=== PATIENT | female | born 1960 | race Caucasian/White ===

== ENCOUNTER 2023-04-01 13:27 | Inpatient (IN) | payer MEDICAID, SELFPAY ==
[2023-04-01 13:34] VITALS: BP 168/74; PULSE 57; RESP 16; TEMP 36.3; O2SAT 100; BMI 24.3
--- NOTE | 2023-04-01 13:44 | CRLHL7_ITS ---
For Patients: As a result of the Century Cures Act, medical imaging exams and procedure reports are released immediately into your electronic medical record. You may view this report before your referring provider. If you have questions, please contact your health care provider. Indication: FALL, PAIN CANT BEAR WT Technique: AP hip centered pelvis and two views right hip Comparison: None Findings: There is a subtle lucency through the femoral neck on the right. The pubic rami are intact. Mild degenerative changes. Impression: Subtle nondisplaced right femoral neck fracture. Dictated by Wilton Jay MD @ 04/01/2023 2:30:09 PM (Electronically Signed)
--- NOTE | 2023-04-01 13:51 | ED_ITS ---
HPI - General Adult General Date Seen: 04/01/23 Chief complaint: Hip Injury/Pain Stated complaint: Fall Time Seen by Provider: 04/01/23 13:30 Source: patient Mode of arrival: wheelchair Limitations: no limitations History of Present Illness HPI narrative: Patient is a 62-year-old woman who presents by car after having fallen and landing on her right hip. She has been unable to weight bear since then. She was walking her pool got tangled up and fell landing on the right hip. She complains of pain in the lateral right hip. Denies other complaints. Medications reviewed, no anticoagulation. Related Data Home Medications Medication Instructions Recorded Confirmed lisinopril 10 mg tablet 10 mg PO DAILY 04/01/23 04/01/23 venlafaxine 150 mg 150 mg PO DAILY 04/01/23 04/01/23 capsule,extended release 24 hr Allergies Allergy/AdvReac Type Severity Reaction Status Date / Time oxycodone Allergy Unknown Verified 04/01/23 13:37 Review of Systems Status of ROS: Reports: 6 or more systems reviewed and unremarkable except as noted in History and below Exam Narrative: Exam Narrative: Vital signs as noted above. In general, an alert, well-appearing patient. Head: Normocephalic, atraumatic. Eyes: Pupils are equal reactive. Extraocular movements are full. Conjunctivae are normal. ENT: Mucous membranes are moist. Throat is normal. Neck: Supple without lymphadenopathy. Heart: Regular rate and rhythm. No murmur or rub. Lungs: Clear bilaterally. No increased work of breathing, crackles or wheezes. Abdomen: Soft and nontender. No organomegaly. Extremities: Well perfused. No edema. No calf tenderness. Pulses are difficult to palpate in bilateral feet. CMS otherwise intact. Pain with range of motion of the right hip. Neurologic: Patient is alert and oriented to person and place. Speech is fluent. Face is symmetric. Moves all extremities equally. Affect: Normal. Skin: Warm and dry. Well perfused. Const: Vital Signs, click to edit/add: Vital Signs - 24 hr 04/01/23 13:34 Temperature 97.4 F L Pulse Rate [Pulse Oximeter] 57 L Respiratory Rate 16 Blood Pressure [Le ft Upper Arm] 168/74 H Pulse Oximetry 100 Oxygen Delivery Me thod Room Air Documenting provider has reviewed patient's vital signs: yes Course Course Hospital Course: X-rays of the right hip by my review show a subtle lucency through the femoral neck on the cross-table lateral. Other views looked normal, but I do think this represents fracture. Final radiology read is the same. Reviewed this with the patient. She is given morphine and Zofran for pain and nausea control. Labs were ordered. EKG is ordered in anticipation of OR tomorrow. Care is discussed with the hospitalist as well as Dr. Enriquez. Plan is for admission for operative care tomorrow. No other complaints at this time. She did have a Clark placed. Vital Signs Vital signs: Initial Vital Signs Temperature 97.4 F L 04/01/23 13:34 Temperature Source Temporal Artery Scan 04/01/23 13:34 Pulse Rate 57 L 04/01/23 13:34 Respiratory Rate 16 04/01/23 13:34 Blood Pressure 168/74 H 04/01/23 13:34 Blood Pressure Mean 105 04/01/23 13:34 Blood Pressure Position Sitting 04/01/23 13:34 Pulse Oximetry 100 04/01/23 13:34 Oxygen Delivery Method Room Air 04/01/23 13:34 Vital Signs Temperature 97.4 F L 04/01/23 13:34 Pulse Rate 57 L 04/01/23 13:34 Respiratory Rate 16 04/01/23 13:34 Blood Pressure 168/74 H 04/01/23 13:34 Pulse Oximetry 100 04/01/23 13:34 Oxygen Delivery Method Room Air 04/01/23 13:34 Temperature 97.4 F L 04/01/23 13:34 Pulse Rate 57 L 04/01/23 13:34 Respiratory Rate 16 04/01/23 13:34 Blood Pressure 168/74 H 04/01/23 13:34 Pulse Oximetry 100 04/01/23 13:34 Oxygen Delivery Method Room Air 04/01/23 13:34 Medical Decision Making Lab Data Labs: Lab Results 04/01/23 Range/Units 14:45 WBC 5.58 (4.50-11.00) K/uL RBC 4.31 (4.00-5.20) m/uL Hgb 13.3 (12.0-16.0) gm/dL Hct 38.0 (33.0-51.0) % MCV 88 (80-100) fL MCH 31 (26-34) pg MCHC 35 (32-36) gm/dL RDW Coeff of [place] 12.0 (11.5-15.5) % Plt Count 211 (140-440) K/uL Neut % (Auto) 66.8 (42.0-72.0) % Lymph % (Auto) 25.6 (20-44) % [place] % (Auto) 6.3 (0.0-11.0) % Eos % (Auto) 0.2 (0.0-7.0) % Baso % (Auto) 0.2 (0.0-3.0) % Neut # (Auto) 3.73 (1.7-7.0) K/uL Lymph # (Auto) 1.43 (0.90-2.90) K/uL [place] # (Auto) 0.40 (0.00-0.90) K/UL Eos # (Auto) 0.01 (0.00-0.50) K/uL Baso # (Auto) 0.01 (0.00-0.30) K/uL Abs Immat Gran (auto) 0.05 (0.00-0.30) K/uL Imm/Tot Granulo (auto) 0.9 % INR 0.96 (0.91-1.10) APTT 28 (23-33) Seconds Discharge Plan Discharge Clinical Impression: Closed fracture of right hip Patient Disposition: Admitted As Observation Condition: Stable
[2023-04-01] MEDS: ONDANSETRON 2 MG/ML inj 4 MG IVP (14:59)
[2023-04-01] MEDS: MORPHINE 4 MG/ML INJ IVP ×5 (15:00→23:12)
[2023-04-01 15:31] LABS: Basophils Absolute Auto 0.01 K/uL (0.00-0.30); Basophils Percent Auto 0.2 % (0.0-3.0); Eosinophils Absolute Auto 0.01 K/uL (0.00-0.50); Eosinophils Percent Auto 0.2 % (0.0-7.0); Hemoglobin* 13.3 gm/dL (12.0-16.0); Immature Granulocytes Abs Auto 0.05 K/uL (0.00-0.30); Immature Granulocytes Pct Auto 0.9 %; Lymphocytes Absolute Auto 1.43 K/uL (0.90-2.90); Lymphocytes Percent Auto 25.6 % (20-44); Mean Corpuscular HGB Conc 35 gm/dL (32-36); Mean Corpuscular Hemoglobin 31 pg (26-34); Mean Corpuscular Volume 88 fL (80-100); Monocytes Percent Auto 6.3 % (0.0-11.0); Neutrophils Absolute Auto 3.73 K/uL (1.7-7.0); Neutrophils Percent Auto 66.8 % (42.0-72.0); Platelet Count* 211 K/uL (140-440); Red Blood Count 4.31 m/uL (4.00-5.20); White Blood Count* 5.58 K/uL (4.50-11.00)
[2023-04-01 15:33] LABS: Slide Review Reflex No
[2023-04-01 15:48] LABS: Albumin* 4.4 g/dL (3.3-5.0)
[2023-04-01 15:49] LABS: Chloride* 103 mmol/L (96-114); Sodium* 137 mmol/L (135-149)
[2023-04-01 15:51] LABS: Alkaline Phosphatase* 54 U/L (40-150); Aspartate Amino Transferase* 26 U/L (12-35); Bilirubin Direct* 0.2 mg/dL (0.0-0.5); Bilirubin Total* 0.5 mg/dL (0.1-1.5); Blood Urea Nitrogen* 16 mg/dL (7-30); Carbon Dioxide* 28 mmol/L (20-32); Creatinine* 0.7 mg/dL (0.5-1.5); Est. Creatinine Clearance* 57.45; Estimated Glomerular Filt Rate 98 ml/min
[2023-04-01 15:52] LABS: Alanine Aminotransferase* 25 U/L (4-35); Calcium* 9.4 mg/dL (8.4-10.6); Glucose* 117 mg/dL (60-115)
[2023-04-01 15:53] LABS: INR 0.96 (0.91-1.10); Partial Thromboplastin Time* 28 Seconds (23-33); Prothrombin Time 13.3 Seconds
--- NOTE | 2023-04-01 16:07 | P.IMHP_ITS ---
Hospitalist- H&P: HPI History of Present Illness Date Seen: 04/01/23 Chief complaint: Fall Narrative: Teresa Shelton is a 62 year old female who presented to the ED after a mechanical fall this afternoon. She was walking her 65 pound poodle and got tangled in the leash, falling onto her R hip. No other preceding symptoms. ER Course and Findings: - R femoral neck fracture on XR - received Morphine for pain control - Orthopedic surgery consulted, plans on intervention tomorrow morning - reassuring baseline labs Past histories updated below. Teresa has a PCP in [place], [place]. She had a recent PCP visit with reassuring labs, per her report. No known history of osteopenia or osteoporosis. She was never on HRT. No history of blood clots, surgical or anesthetic complications during previous surgeries. She is very active and plans to go home as soon as possible postoperatively. Review of Systems Status of ROS: Reports: 10 or more systems reviewed and unremarkable except as noted in History and below [facility] Medical History (Updated 04/01/23 @ 17:23 by Suzy Li MD) Family history of colon cancer ?Z80.0 - Family history of malignant neoplasm of digestive organs (ICD-10) Anxiety ?F41.9 - Anxiety disorder, unspecified (ICD-10) Hyperlipidemia ?E78.5 - Hyperlipidemia, unspecified (ICD-10) GERD (gastroesophageal reflux disease) ?K21.9 - Gastro-esophageal reflux disease without esophagitis (ICD-10) Surgical History (Updated 04/01/23 @ 17:10 by Suzy Li MD) H/O gastric bypass ?Z98.84 - Bariatric surgery status (ICD-10) Hx of laparoscopic gastric banding ?Z98.84 - Bariatric surgery status (ICD-10) History of carpal tunnel release ?Z98.890 - Other specified postprocedural states (ICD-10) H/O: hysterectomy ?Z90.710 - Acquired absence of both cervix and uterus (ICD-10) Hx of cholecystectomy ?Z90.49 - Acquired absence of other specified parts of digestive tract (ICD- 10) Family History (Updated 04/01/23 @ 16:08 by Suzy Li MD) Father Colon cancer Social History (Updated 04/01/23 @ 17:14 by Suzy Li MD) Narrative: Patient lives with Jas Cloud (would be medical decision maker if needed); they live in an park in [place] in the summer and in [place], [place] during the winter. She has 2 adult children, Jas has 4 adult children. Former smoker, quit remotely. Occasional MJ use, rare ETOH use. DNR/DNI (but agrees to Full Code during surgical procedure). Meds Home Medications and Allergies Home Medications Medication Instructions Recorded Confirmed Type lisinopril 10 mg tablet 10 mg PO DAILY 04/01/23 04/01/23 History venlafaxine 150 mg 150 mg PO DAILY 04/01/23 04/01/23 History capsule,extended release 24 hr Home Medication Comments: Also takes a Calcium supplement and MVI daily. Allergies Allergy/AdvReac Type Severity Reaction Status Date / Time oxycodone Allergy Unknown Verified 04/01/23 13:37 Exam Narrative: Exam Narrative: GEN: Alert and oriented, nontoxic HEENT: EOMIs bilaterally, no scleral icterus CV: RRR, No concerning murmurs, rubs, or gallops R: LCTA bilaterally without concerning wheezing, air movement adequate Ext: wwp, no concerning edema Skin: No concerning skin lesions or rashes on exposed skin Neuro: No focal deficits, no resting tremor Psych: Appropriate Const: Vital Signs, click to edit/add: Vital Signs - 24 hr 04/01/23 13:34 Temperature 97.4 F L Pulse Rate [Pulse Oximeter] 57 L Respiratory Rate 16 Blood Pressure [Le ft Upper Arm] 168/74 H Pulse Oximetry 100 Oxygen Delivery Me thod Room Air Hospitalist - H&P: Result Labs Labs: Short CBC 04/01/23 Range/Units 14:45 WBC 5.58 (4.50-11.00) K/uL Hgb 13.3 (12.0-16.0) gm/dL Hct 38.0 (33.0-51.0) % Plt Count 211 (140-440) K/uL BMP 04/01/23 14:45 Sodium 137 Chloride 103 Carbon Dioxide 28 BUN 16 Creatinine 0.7 Glucose 117 H Calcium 9.4 Liver Function 04/01/23 Range/Units 14:45 Total Bilirubin 0.5 (0.1-1.5) mg/dL Direct Bilirubin 0.2 (0.0-0.5) mg/dL AST 26 (12-35) U/L ALT 25 (4-35) U/L Alkaline Phosphatase 54 (40-150) U/L Albumin 4.4 (3.3-5.0) g/dL Assessment and Plan Assessment and plan (1) Closed fracture of right hip: Problem comment: - R femoral neck, 04/01/23 Status: Acute Plan - surgery with Orthopedic Surgery tomorrow morning, NPO after midnight - pain control - continue home medications for comorbidities
[2023-04-01 16:20] VITALS: BP 162/73; PULSE 61; RESP 16; TEMP 37.6; O2SAT 100; BMI 25.4
[2023-04-01 16:30] VITALS: O2SAT 100
[2023-04-01 16:36] LABS: Potassium* 3.3 mmol/L (3.6-5.1)
[2023-04-01] MEDS: ACETAMINOPHEN 325 MG TABLET 975 MG PO (17:53)
[2023-04-01 19:00] VITALS: BP 145/75; PULSE 62; RESP 16; TEMP 36.9; O2SAT 96
--- NOTE | 2023-04-01 19:41 | PC.NURSE ---
Pt admitted via stretcher from ED to room 276 @ 1620 s/p fall and non-displaced hip fx. Eval by Dr. Li. Admission completed by primary RN. Please see eMar for meds given d/to right hip pain and dull headache. Pt had 100% of regular diet. Orders for NPO post MN, plan OR for hip repair at 0730 am with orthopedic surgeon. Report to oncoming shift RN. Strict bedrest. Clark to DD and bed alarm engaged per fall prevention protocol.
[2023-04-01] MEDS: POTASSIUM BICARB 25 MEQ EFFERVESCENT TAB 50 MEQ PO (21:27)
[2023-04-01] MEDS: SODIUM CHLORIDE 0.9 % (FLUSH) 10 ML SYRINGE 5 ML IVF (21:28)
[2023-04-01] MEDS: LACTATED RINGERS 1000 ML 1,000 ML 125 ML IV (21:28)
[2023-04-01 23:00] VITALS: BP 131/66; PULSE 57; RESP 14; TEMP 36.8; O2SAT 96
[2023-04-02] VITALS (22 sets, daily range): BP systolic 110–145; BP diastolic 57–69; PULSE 56–73; RESP 10–20; TEMP 36.4–37.1; O2SAT 56–98
[2023-04-02] MEDS: MORPHINE 4 MG/ML INJ IVP ×4 (01:13→16:19)
[2023-04-02] MEDS: LACTATED RINGERS 1000 ML 1,000 ML 125 ML IV ×2 (05:21→08:36)
[2023-04-02] MEDS: ACETAMINOPHEN 325 MG TABLET 975 MG PO (05:26)
--- NOTE | 2023-04-02 06:21 | PC.NURSE ---
Pleasant and cooperative with cares. Alert and oriented x 4. Pain reported to right hip and radiates into buttock and upper thigh, pain well managed with morphine and ice pack to site. NPO at midnight due to planned surgical procedure. CMS to RLE intact.Denies any nausea or vomiting. Denies an dyspnea or shortness of breath. Clark catheter patent, draining clear pale yellow urine.
--- NOTE | 2023-04-02 07:10 | P.ORPRC_ITS ---
Procedure Note Date of procedure: 04/02/23 Procedure: PREOPERATIVE DIAGNOSES: 1. Right femoral neck fracture, mildly angulated, nondisplaced, extra-articular POSTOPERATIVE DIAGNOSES: 1. Right femoral neck fracture, mildly angulated, nondisplaced, extra-articular NAME OF OPERATION: 1. Right femur open reduction and internal fixation 2. 32974 - intraoperative fluoroscopy up to 1 hour. SURGEON: Lawrence Brown MD FISHERMAN HELPER: Dave VERMA. Of note, an assistant produce manager was critical for this case to aide in patient positioning, extremity positioning, tissue retraction, instrument manipulation, and closure. ANESTHESIA: Spinal IMPLANTS: Synthes femoral neck system (FNS) with 1 hole side plate with as sociated screw, a lag screw, and divergent femoral head screw EBL: 50 mL COMPLICATIONS: None evident INDICATIONS: The patient is a pleasant, 70-year-old male who unfortunately sustained a fall within the last 24 hours. They landed on their right hip and were unable to bear weight. They experienced significant pain which prompted a visit to [facility]. X-rays were obtained and revealed a proximal femur fracture consistent with that described above. Given these findings, along with the desire to help with pain control and improve mobility/mobilization, surgery was recommended to stabilize the fracture and prevent it from displacing. PROCEDURE: Following a thorough discussion of risks, benefits, and alternatives, consent was obtained and the right hip was marked. After obtaining proper medical evaluation determining the patient was optimized prior to surgery, they were brought to the operating room and placed supine on the operating table. Induction of anesthesia undertaken. 2 g IV Ancef was administered within 1 hr of incision preoperatively. Proper time-out was performed identifying proper patient, site, and procedure. The operative extremity was prepped & draped in the appropriate sterile fashion using ChloraPrep after the patient was positioned on the fracture table with the head in neutral alignment and all bone prominences well padded. C-arm fluoroscopic imaging was utilized to obtain AP and lateral views of the operative hip. This indeed confirmed proper position of the proximal femur fracture. 10 blade skin incision was made distal to the greater trochanteric tip. Sharp incision through skin and ITB band allowed palpation of the proximal femur distal to the greater trochanteric tip. A partially threaded guidewire was initially placed near the center of the femoral neck position on both AP and lateral planes. Following this the associated steps for placement of the FNS device were completed sequentially. C-arm fluoroscopic imaging confirmed fracture to remain stable, screws to be extra-articular, and the femur to now be moving as a single unit. Irrigation normal saline was performed followed by closure with # 0 Vicryl for the ITB band, 2-O Vicryl and 4-0 Monocryl for subcutaneous and subcuticular closure, respectively. The patient was awoken from anesthesia and transferred to the PACU in stable condition. PLAN: 1. Weight bear as tolerated operative lower extremity. 2. Encouraged ice. 3. Oxycodone for pain as needed. 4. 23 hr perioperative antibiotics. 5. Chemoprophylaxis for DVT prophylaxis along with [place] gallego and SCDs.
--- NOTE | 2023-04-02 07:18 | W.ANESCHARGE ---
Anesthesia Charges Start Date/Time Anesthesia Start Date: 04/02/23 Anesthesia Start Time: 07:32 Stop Date/Time Anesthesia Stop Date: 04/02/23 Anesthesia Stop Time: 09:00
[2023-04-02 07:19] LABS: Basophils Percent Auto 0.2 % (0.0-3.0); Eosinophils Percent Auto 0.7 % (0.0-7.0); Hematocrit 36.8 % (33.0-51.0); Hemoglobin* 12.3 gm/dL (12.0-16.0); Immature Granulocytes Pct Auto 0.2 %; Lymphocytes Percent Auto 29.8 % (20-44); Mean Corpuscular HGB Conc 33 gm/dL (32-36); Mean Corpuscular Hemoglobin 30 pg (26-34); Mean Corpuscular Volume 91 fL (80-100); Monocytes Percent Auto 10.3 % (0.0-11.0); Neutrophils Percent Auto 58.8 % (42.0-72.0); Platelet Count* 170 K/uL (140-440); RDW Coefficient of Variation % 12.4 % (11.5-15.5); Red Blood Count 4.04 m/uL (4.00-5.20); White Blood Count* 4.36 K/uL (4.50-11.00)
[2023-04-02 07:20] LABS: Slide Review Reflex No
--- NOTE | 2023-04-02 07:30 | CRLHL7_ITS ---
For Patients: As a result of the Cures Act, medical imaging exams and procedure reports are released immediately into your electronic medical record. You may view this report before your referring provider. If you have questions, please contact your health care provider. Indication: ORIF RT Hip Technique: Two fluoroscopic images of the right hip. Fluoroscopic time 60.6 seconds. IMPRESSION: Fluoroscopic guidance for open reduction internal fixation of right femoral neck fracture. Dictated by Wilton Jay MD @ 04/02/2023 9:39:03 AM (Electronically Signed)
--- NOTE | 2023-04-02 07:33 | PM.ORCN ---
History of Present Illness HPI Date Seen: 04/02/23 Chief complaint: Fall Narrative: Teresa is a pleasant 62 year old female who presented to the ED after a mechanical fall on 04/01/2023. She was walking her 65 pound poodle and got tangled in the leash, falling onto her R hip. No other preceding symptoms. Upon presentation to the emergency department, x-rays were obtained of the right hip and revealed a mildly angulated, nondisplaced, extra-articular right femoral neck fracture. PFSH PFSH Medical History Family history of colon cancer ?Z80.0 - Family history of malignant neoplasm of digestive organs (ICD-10) Anxiety ?F41.9 - Anxiety disorder, unspecified (ICD-10) Hyperlipidemia ?E78.5 - Hyperlipidemia, unspecified (ICD-10) GERD (gastroesophageal reflux disease) ?K21.9 - Gastro-esophageal reflux disease without esophagitis (ICD-10) Surgical History H/O gastric bypass ?Z98.84 - Bariatric surgery status (ICD-10) Hx of laparoscopic gastric banding ?Z98.84 - Bariatric surgery status (ICD-10) History of carpal tunnel release ?Z98.890 - Other specified postprocedural states (ICD-10) H/O: hysterectomy ?Z90.710 - Acquired absence of both cervix and uterus (ICD-10) Hx of cholecystectomy ?Z90.49 - Acquired absence of other specified parts of digestive tract (ICD-10) Family History Father Colon cancer Social History Narrative: Patient lives with Jas Cloud (would be medical decision maker if needed); they live in an park in [place] in the summer and in [place], [place] during the winter. She has 2 adult children, Jas has 4 adult children. Former smoker, quit remotely. Occasional MJ use, rare ETOH use. DNR/DNI (but agrees to Full Code during surgical procedure). What is your current living situation?: I presently have a place to live Problems where you live: no known problems Problems where you live details: camping at a trailer park in [place] In the past 12 months, utilities in danger of being shut off: no In the past 12 mos, have been you worried that your food would run out before you had money to buy more?: never true In the past 12 mos, the food you bought just didn't last and you didn't have money to buy more?: never true Highest level of school completed/degree received: high school graduate Smoking Status: Never smoker Do you use any of these nicotine containing products: None Second hand tobacco smoke exposure: No How often do you have a drink containing alcohol: 2-4 times a month How often do you have six or more drinks on one occasion: Never AUDIT-C Alcohol total score: 2 Non-prescribed substance use: marijuana (any form) Non-prescribed substance use details: occasionally smokes marijuana for anxiety Caffeine: Yes (1 cup of coffee a day) How often does anyone, including family, friends and others, physically hurt you: never How often does anyone, including family, friends and others, insult or talk down to you: never How often does anyone, including family, friends and others, threaten you with harm: never How often does anyone, including family, friends and others, scream or curse at you: never service: No Meds Home Medications and Allergies Home Medications Medication Instructions Recorded Confirmed Type lisinopril 10 mg tablet 10 mg PO DAILY 04/01/23 04/01/23 History venlafaxine 150 mg 150 mg PO DAILY 04/01/23 04/01/23 History capsule,extended release 24 hr Allergies Allergy/AdvReac Type Severity Reaction Status Date / Time oxycodone Allergy Unknown Verified 04/01/23 13:37 Ortho Exam Narrative Exam Narrative: Upon the day of my interview 04/02/2023, she is lying supine in the hospital bed comfortable and cooperative. She provides the history. Exam of the right hip shows no lacerations abrasions. No erythema. She is tender palpation the right hip region as well as with any hip or knee range of motion. Ankle range of motion is appropriate, full, and shows excellent strength. 5/5 motor function ankle plantar and dorsiflexion. Sensation intact to light touch in superficial and deep peroneal as well as plantar distribution. Palpable DP and PT pulse. Const Vital Signs, click to edit/add: Vital Signs - 24 hr 04/01/23 13:34 04/01/23 16:20 04/01/23 16:30 Temperature 97.4 F L 99.6 F Pulse Rate [Left Apical] 61 Pulse Rate [Left Pulse Oximeter] Pulse Rate [Pulse Oximeter] 57 L Respiratory Rate 16 16 Blood Pressure [Left Arm] 162/73 H Blood Pressure [Left Upper Arm] 168/74 H Pulse Oximetry 100 100 100 Oxygen Delivery Method Room Air Room Air Room Air 04/01/23 19:00 04/01/23 23:00 04/01/23 23:00 Temperature 98.4 F 98.2 F Pulse Rate [Left Apical] Pulse Rate [Left Pulse Oximeter] 62 57 L Pulse Rate [Pulse Oximeter] Respiratory Rate 16 14 Blood Pressure [Left Arm] 145/75 H 131/66 Blood Pressure [Left Upper Arm] Pulse Oximetry 96 96 96 Oxygen Delivery Method Room Air Room Air Room Air 04/02/23 03:00 Temperature 97.9 F Pulse Rate [Left Apical] Pulse Rate [Left Pulse Oximeter] 56 L Pulse Rate [Pulse Oximeter] Respiratory Rate 14 Blood Pressure [Left Arm] 128/63 Blood Pressure [Left Upper Arm] Pulse Oximetry 95 Oxygen Delivery Method Room Air Results Labs Labs: Laboratory Results - last 48 hr 04/01/23 04/02/23 14:45 06:57 WBC 5.58 4.36 L RBC 4.31 4.04 Hgb 13.3 12.3 Hct 38.0 36.8 MCV 88 91 MCH 31 30 MCHC 35 33 RDW Coeff of [place] 12.0 12.4 Plt Count 211 170 Neut % (Auto) 66.8 58.8 Lymph % (Auto) 25.6 29.8 [place] % (Auto) 6.3 10.3 Eos % (Auto) 0.2 0.7 Baso % (Auto) 0.2 0.2 Neut # (Auto) 3.73 2.60 Lymph # (Auto) 1.43 1.30 [place] # (Auto) 0.40 0.40 Eos # (Auto) 0.01 0.00 Baso # (Auto) 0.01 0.00 Abs Immat Gran (auto) 0.05 0.00 Imm/Tot Granulo (auto) 0.9 0.2 INR 0.96 APTT 28 Sodium 137 Potassium 3.3 L Chloride 103 Carbon Dioxide 28 BUN 16 Creatinine 0.7 Estimated Creat Clear 57.45 Estimated GFR 98 Glucose 117 H Calcium 9.4 Total Bilirubin 0.5 Direct Bilirubin 0.2 AST 26 ALT 25 Alkaline Phosphatase 54 Total Protein 7.0 Albumin 4.4 Diagnostic results Additional Comments: AP pelvis, AP and cross-table lateral views of the right hip from [facility] dated 04/01/2023 were ordered by a different provider and reviewed by me. This demonstrates a mildly angulated (apex anterior) and nondisplaced right femoral neck fracture that is extra-articular the hip is otherwise properly located. No signs of AVN. No significant arthritic changes. Assessment and Plan Assessment and plan (1) Closed fracture of right hip: Problem comment: - R femoral neck, 04/01/23 Status: Acute Total time spent: Total time spent is greater than 50% in coordination of care (as documented) at patient's floor/unit and/or counseling patient: Plan We had a good discussion today regarding her findings. Helped her understand the fracture pattern and its treatment choices. This includes nonoperative management or surgical intervention. In my opinion, I do think surgery is indicated. This would be for an open reduction with internal fixation of a right femoral neck fracture. I described the surgical procedure for as well as the pros and cons/risks and benefits. Also help her understand the postoperative timing and prognosis. Given this information, indeed she understands and elects to proceed with surgery. We will plan to do this on 04/02/2023. Postoperatively, I would anticipate DVT prophylaxis with both mechanical and pharmaceutical measures. I would anticipate weightbear as tolerated right lower extremity with walker ambulation assistance. PT/OT consult will be important to help with education and assistance. The hospitalist's preop evaluation is greatly appreciated. I spoke with Dr. Li of the hospitalist team this morning and coordinated care with her regarding this patient.
[2023-04-02 07:36] LABS: Chloride* 101 mmol/L (96-114)
[2023-04-02 07:37] LABS: Potassium* 4.3 mmol/L (3.6-5.1); Sodium* 140 mmol/L (135-149)
[2023-04-02 07:39] LABS: Creatinine* 0.7 mg/dL (0.5-1.5); Est. Creatinine Clearance* 57.45; Estimated Glomerular Filt Rate 98 ml/min
[2023-04-02 07:40] LABS: Blood Urea Nitrogen* 12 mg/dL (7-30); Carbon Dioxide* 37 mmol/L (20-32); Glucose* 112 mg/dL (60-115)
[2023-04-02] MEDS: CEFAZOLIN 1 GM inj IVP (07:45)
--- NOTE | 2023-04-02 08:03 | P.NB_ITS ---
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 Images saved: Yes Medications given in 5ml increments after negative aspiration: Ropivicaine %: 0.5 mL: 30 Needle gauge: 20 Decadron (mg): 10 Precedex (mcg): 25 Patient tolerated procedure well: Yes Additional comments: Needle noted below psoas tendon needle noted adjacent to LFCN Block Charges Block Charge (with Pro Fee): Other Periph Nerve Block Use of Ultrasound Machine for Block: Yes- US Guidance/pain block
--- NOTE | 2023-04-02 08:37 | W.ANESCHARGE ---
Anesthesia Charges Start Date/Time Anesthesia Start Date: 04/02/23 Anesthesia Start Time: 07:32 Stop Date/Time Anesthesia Stop Date: 04/02/23 Anesthesia Stop Time: 09:00
--- NOTE | 2023-04-02 13:20 | PM.IMPN1 ---
Progress Note: A&P Assessment and plan (1) Closed fracture of right hip: Problem details: - R femoral neck, 04/01/23 - s/p ORIF with Dr. Brown of Orthopedic Surgery on 04/02 Status: Acute Plan - pain management and prophylaxis per orthopedic surgery team - continue home medications for comorbidities - anticipate routine postoperative course, possibly home with tomorrow - updated at bedside, questions answered Subjective Date Seen: 04/02/23 Interval history: Teresa had a RIGHT femur open reduction and internal fixation with Dr. Brown of Orthopedic surgery this morning. There were no surgical or anesthetic complications. Teresa endorses feeling tired but has no other concerns for the hospitalist team this morning. Exam Narrative: Exam Narrative: GEN: Alert and oriented, sitting up in bed CV: RRR R: LCTA bilaterally, no tachypnea, air movement adequate Neuro: Nonfocal Psych: Appropriate Const: Vital Signs, click to edit/add: Vital Signs - 24 hr 04/01/23 13:34 04/01/23 16:20 04/01/23 16:30 Temperature 97.4 F L 99.6 F Pulse Rate Pulse Rate [Left A pical] 61 Pulse Rate [Left P ulse Oximeter] Pulse Rate [Pulse Oximeter] 57 L Respiratory Rate 16 16 Blood Pressure Blood Pressure [Le ft Arm] 162/73 H Blood Pressure [Le ft Upper Arm] 168/74 H Pulse Oximetry 100 100 [facility] Room Air Room Air 04/01/23 19:00 04/01/23 23:00 04/01/23 23:00 Temperature 98.4 F 98.2 F Pulse Rate Pulse Rate [Left A pical] Pulse Rate [Left P ulse Oximeter] 62 57 L Pulse Rate [Pulse Oximeter] Respiratory Rate 16 14 Blood Pressure Blood Pressure [Le ft Arm] 145/75 H 131/66 Blood Pressure [Le ft Upper Arm] Pulse Oximetry 96 96 96 Oxygen Delivery Me thod Room Air Room Air Room Air 04/02/23 03:00 04/02/23 07:25 04/02/23 07:25 Temperature 97.9 F Pulse Rate Pulse Rate [Left A pical] Pulse Rate [Left P ulse Oximeter] 56 L Pulse Rate [Pulse Oximeter] Respiratory Rate 14 18 18 Blood Pressure Blood Pressure [Le ft Arm] 128/63 Blood Pressure [Le ft Upper Arm] Pulse Oximetry 95 95 95 Oxygen Delivery Fl thod Room Air Room Air Room Air 04/02/23 08:56 04/02/23 09:05 04/02/23 09:10 Temperature 97.6 F 98.1 F Pulse Rate 60 60 62 Pulse Rate [Left A pical] Pulse Rate [Left P ulse Oximeter] Pulse Rate [Pulse Oximeter] Respiratory Rate 10 L 10 L 10 L Blood Pressure 115/62 115/60 116/60 Blood Pressure [Le ft Arm] Blood Pressure [Le ft Upper Arm] Pulse Oximetry 96 97 96 [facility] Room Air Room Air 04/02/23 09:15 04/02/23 09:20 04/02/23 09:25 Temperature 98.2 F Pulse Rate 59 L 60 59 L Pulse Rate [Left A pical] Pulse Rate [Left P ulse Oximeter] Pulse Rate [Pulse Oximeter] Respiratory Rate 12 12 12 Blood Pressure 115/61 110/59 L 112/60 Blood Pressure [Le ft Arm] Blood Pressure [Le ft Upper Arm] Pulse Oximetry 98 96 56 L Oxygen Delivery [facility] Room Air Room Air Room Air 04/02/23 09:30 04/02/23 09:42 04/02/23 09:45 Temperature 98.4 F 98.7 F 98.7 F Pulse Rate 57 L Pulse Rate [Left A pical] 57 L Pulse Rate [Left P ulse Oximeter] 57 L Pulse Rate [Pulse Oximeter] Respiratory Rate 12 20 18 Blood Pressure 113/57 L Blood Pressure [Le ft Arm] 125/62 124/63 Blood Pressure [Le ft Upper Arm] Pulse Oximetry 60 L 95 Oxygen Delivery Fl thod Room Air Room Air Room Air 04/02/23 10:00 04/02/23 10:15 04/02/23 10:30 Temperature Pulse Rate Pulse Rate [Left A pical] 57 L 58 L 61 Pulse Rate [Left P ulse Oximeter] 57 L 58 L 61 Pulse Rate [Pulse Oximeter] Respiratory Rate 18 18 18 Blood Pressure Blood Pressure [Le ft Arm] 115/59 L 114/61 120/64 Blood Pressure [Le ft Upper Arm] Pulse Oximetry 96 95 93 Oxygen Delivery Fl thod Room Air Room Air Room Air Labs Labs: Laboratory Results - last 24 hr 04/01/23 04/02/23 14:45 06:57 WBC 5.58 4.36 L RBC 4.31 4.04 Hgb 13.3 12.3 Hct 38.0 36.8 MCV 88 91 MCH 31 30 MCHC 35 33 RDW Coeff of [place] 12.0 12.4 Plt Count 211 170 Neut % (Auto) 66.8 58.8 Lymph % (Auto) 25.6 29.8 [place] % (Auto) 6.3 10.3 Eos % (Auto) 0.2 0.7 Baso % (Auto) 0.2 0.2 Neut # (Auto) 3.73 2.60 Lymph # (Auto) 1.43 1.30 [place] # (Auto) 0.40 0.40 Eos # (Auto) 0.01 0.00 Baso # (Auto) 0.01 0.00 Abs Immat Gran (auto) 0.05 0.00 Imm/Tot Granulo (auto) 0.9 0.2 INR 0.96 APTT 28 Sodium 137 140 Potassium 3.3 L 4.3 Chloride 103 101 Carbon Dioxide 28 37 H BUN 16 12 Creatinine 0.7 0.7 Estimated Creat Clear 57.45 57.45 Estimated GFR 98 98 Glucose 117 H 112 Calcium 9.4 9.0 Total Bilirubin 0.5 Direct Bilirubin 0.2 AST 26 ALT 25 Alkaline Phosphatase 54 Total Protein 7.0 Albumin 4.4
[2023-04-02] MEDS: HYDROCODONE-ACETAMIN 5-325 MG 1 TAB PO ×3 (13:44→21:25)
[2023-04-02] MEDS: CEFAZOLIN 2 GM in 0.9 % SODIUM CHLORIDE Mini-bag 100 ML IVPB ×2 (13:45→21:25)
[2023-04-02] MEDS: lisinopriL 10 MG TABLET PO (13:50)
[2023-04-02] MEDS: VENLAFAXINE ER 75 MG CAPSULE 150 MG PO (13:51)
--- NOTE | 2023-04-02 14:43 | PC.NURSE ---
Pt taken to OR at 0730 via her hospital bed. Pt returned from PACU to room 276 via bed s/p right hip fracture repair with Dr. Brown @[id number]. Jas present at bedside. Please see initial assessment from PACU & frequent post op VS per protocol. PT eval for exercises. Lisa 25% of CL lunch. Adequate I & 0, chávez to DD. Plexipulses bilaterally, ice pack to right hip. Pt repostioned to her side. Please see eMar for meds provided to pt. IV Ancef infused. Advance diet to regular. Report to oncoming shift RN.
[2023-04-02] MEDS: LACTATED RINGERS 1000 ML 1,000 ML 100 ML IV (16:51)
--- NOTE | 2023-04-02 19:38 | PC.NURSE ---
Nursing Care Hours: [id number] Pt this shift calm and cooperative, alert and oriented. Rate pain 5/10 to R hip upon start of shift, treated per eMAR and pain down to 2/10. CMS intact, TEDS and SCD's on. IV patent. Up in chair with SB assist for meal. Walked the [place] about 100 ft, tolerated well. IV leaking during walk, new order to SL completed. DC'd chávez catheter. Pt void immediately after. Bandage CDI, ice applied. VSS
[2023-04-02] MEDS: SENNOSIDES/DOCUSATE TABLET 1 TAB PO (21:25)
[2023-04-03] MEDS: HYDROCODONE-ACETAMIN 5-325 MG 1 TAB PO ×2 (01:45→09:00)
[2023-04-03 03:00] VITALS: BP 148/61; PULSE 58; RESP 16; TEMP 35.7; O2SAT 95
--- NOTE | 2023-04-03 06:39 | PC.NURSE ---
Patient alert and oriented x 4. pain reported to the right hip, well managed with PRN norco and ice pack. Transfers with SBA, ambulates with walker. Up x 3 to bathroom, voiding without difficulty. Dressing to right lateral hip clean, dry and intact.
[2023-04-03] MEDS: ACETAMINOPHEN 325 MG TABLET 975 MG PO (06:52)
[2023-04-03 07:00] VITALS: BP 144/72; PULSE 68; RESP 18; TEMP 36.6; O2SAT 99
[2023-04-03 07:32] LABS: Basophils Absolute Auto 0.02 K/uL (0.00-0.30); Basophils Percent Auto 0.3 % (0.0-3.0); Eosinophils Absolute Auto 0.03 K/uL (0.00-0.50); Eosinophils Percent Auto 0.5 % (0.0-7.0); Hematocrit 35.2 % (33.0-51.0); Hemoglobin* 12.2 gm/dL (12.0-16.0); Lymphocytes Absolute Auto 1.67 K/uL (0.90-2.90); Mean Corpuscular HGB Conc 35 gm/dL (32-36); Mean Corpuscular Hemoglobin 31 pg (26-34); Mean Corpuscular Volume 89 fL (80-100); Monocytes Percent Auto 8.9 % (0.0-11.0); Neutrophils Absolute Auto 4.14 K/uL (1.7-7.0); Neutrophils Percent Auto 64.3 % (42.0-72.0); Platelet Count* 165 K/uL (140-440); RDW Coefficient of Variation % 11.9 % (11.5-15.5); Red Blood Count 3.95 m/uL (4.00-5.20); White Blood Count* 6.43 K/uL (4.50-11.00)
[2023-04-03 07:40] LABS: Slide Review Reflex No
[2023-04-03 07:51] LABS: Chloride* 97 mmol/L (96-114); Potassium* 3.5 mmol/L (3.6-5.1); Sodium* 136 mmol/L (135-149)
[2023-04-03 07:54] LABS: Blood Urea Nitrogen* 12 mg/dL (7-30); Carbon Dioxide* 35 mmol/L (20-32); Creatinine* 0.6 mg/dL (0.5-1.5); Est. Creatinine Clearance* 57.45; Estimated Glomerular Filt Rate 102 ml/min
[2023-04-03 07:55] LABS: Glucose* 121 mg/dL (60-115)
[2023-04-03] MEDS: lisinopriL 10 MG TABLET PO (09:00)
[2023-04-03] MEDS: SENNOSIDES/DOCUSATE TABLET 1 TAB PO (09:00)
[2023-04-03] MEDS: VENLAFAXINE ER 75 MG CAPSULE 150 MG PO (09:00)
--- NOTE | 2023-04-03 10:30 | P.DS_ITS ---
DS: Providers Provider Date Seen: 04/03/23 Date of admission: 04/01/23 17:28 Primary care physician: Not a Local Provider Admitting Clinician: Mitch Scales MD Consults: 04/01/23 19:36 Consult to Occupational Therapy [CONS] Routine Comment: Reason(s) for OT Consult:: ADLs Prior to Discharge Adaptive Equipment Any Restrictions?:: See Comment Comment: right hip fx, OR scheduled for 729 tomorrow am Consult to Physical Therapy [CONS] Routine Comment: Reason(s) for PT Consult:: Evaluate and Treat Any Restrictions?:: See Comment Attending Physician on discharge: Suzy Li MD Date of Discharge: 04/03/23 DS: Diagnosis Discharge Diagnosis (1) Closed fracture of right hip: Status: Acute Problem details: - R femoral neck, 04/01/23 - s/p ORIF with Dr. Brown of Orthopedic Surgery on 04/02 DS: Summary Hospital Course Hospital Course: Teresa is a very pleasant 62-year-old female who presented to the hospital after a mechanical fall at home, sustaining a right femoral neck fracture. She had an ORIF with orthopedic surgery on 04/02. Patient did well postoperatively and comorbidities (noted in H&P) remained stable. No changes made to home medications upon discharge. Prophylaxis and pain management per Orthopedic surgery team. Patient will be discharged home with routine follow-up with therapies, orthopedic surgery, and PCP. Status at Discharge Functional status at discharge: uses cane/walker Overall status at discharge: patient is progressing back to baseline Time Spent with Patient Time attestation: Total time spent providing and/or coordinating discharge services: Exam Narrative: Exam Narrative: GEN: Alert and oriented, sitting up in bed and nontoxic in appearance HEENT: Normal external ears, EOMIs bilaterally, no scleral icterus CV: RRR, No concerning murmurs, rubs, or gallops R: LCTA bilaterally without concerning wheezing Ext: Jersey hose bilateral lower extremity Skin: No concerning skin lesions or rashes on exposed skin Neuro: Nonfocal, ambulating well with walker Psych: Appropriate Const: Vital Signs, click to edit/add: Vital Signs - 24 hr 04/02/23 11:00 04/02/23 11:45 04/02/23 12:00 Temperature Pulse Rate [Left A pical] 73 67 64 Pulse Rate [Left P ulse Oximeter] 73 67 64 Respiratory Rate 18 18 18 Blood Pressure [Le ft Arm] 118/69 119/62 124/64 Pulse Oximetry 94 94 94 Oxygen Delivery Me od Room Air Room Air Room Air 04/02/23 13:00 04/02/23 14:00 04/02/23 15:00 Temperature Pulse Rate [Left A pical] 62 62 Pulse Rate [Left P ulse Oximeter] 62 62 64 Respiratory Rate 18 18 16 Blood Pressure [Le ft Arm] 133/66 132/69 Pulse Oximetry 96 98 Oxygen Delivery Me od Room Air Room Air 04/02/23 15:00 04/02/23 15:00 04/02/23 19:10 Temperature 98.5 F 98.1 F Pulse Rate [Left A pical] Pulse Rate [Left P ulse Oximeter] 64 62 Respiratory Rate 16 16 16 Blood Pressure [Le ft Arm] 118/61 126/68 Pulse Oximetry 97 97 98 [facility] 04/02/23 23:00 04/02/23 23:00 04/03/23 03:00 Temperature 98.0 F 96.2 F L Pulse Rate [Left A pical] Pulse Rate [Left P ulse Oximeter] 60 58 L Respiratory Rate 16 16 Blood Pressure [Le ft Arm] 145/64 H 148/61 H Pulse Oximetry 96 96 95 [facility] Room Air 04/03/23 07:00 04/03/23 07:00 04/03/23 07:00 Temperature 97.8 F Pulse Rate [Left A pical] Pulse Rate [Left P ulse Oximeter] 68 68 Respiratory Rate 18 18 18 Blood Pressure [Le ft Arm] 144/72 H Pulse Oximetry 99 99 [facility] Air DS: Data Data Completed and Pending Labs on day of discharge: Labs from last 24 hours 04/03/23 07:18 WBC 6.43 RBC 3.95 L Hgb 12.2 Hct 35.2 MCV 89 MCH 31 MCHC 35 RDW Coeff of [place] 11.9 Plt Count 165 Neut % (Auto) 64.3 Lymph % (Auto) 26.0 [place] % (Auto) 8.9 Eos % (Auto) 0.5 Baso % (Auto) 0.3 Neut # (Auto) 4.14 Lymph # (Auto) 1.67 [place] # (Auto) 0.60 Eos # (Auto) 0.03 Baso # (Auto) 0.02 Abs Immat Gran (auto) 0.00 Imm/Tot Granulo (auto) 0.0 Sodium 136 Potassium 3.5 L Chloride 97 Carbon Dioxide 35 H BUN 12 Creatinine 0.6 Estimated Creat Clear 57.45 Estimated GFR 102 Glucose 121 H Calcium 9.0 Discharge Plan Discharge Disposition: Home, Self-Care Date of Admission: 04/01/23 17:28 Attending Provider on Discharge: Suzy Li Primary Care Provider: Provider,Not a Local Condition: Stable Anticipated Discharge Date/Time: 04/03/23 09:14 Discharge Medications: New acetaminophen 500 mg tablet 500 - 1,000 mg PO Q4-6H MDD 4,000 mg per day PRNQty: 100 0RF hydrocodone-acetaminophen 5-325 mg Tablet 1 tab PO Q4-6H MDD 6 tabs per day PRN (Reason: postop pain) Qty: 42 0RF Rx Instructions: Do not exceed 4,000 mg acetaminophen in 24 hours sennosides-docusate sodium [Stool Softener-Laxative] 8.6-50 mg Tablet 1 tab PO BID PRN (Reason: constipation) Qty: 30 0RF Rx Instructions: Hold if experiencing loose stools aspirin 81 mg tablet,delayed release (DR/EC) 81 mg PO BID 25 Days Qty: 50 0RF Rx Instructions: DVT prophylaxis Xarelto 10 mg tablet 10 mg PO DAILY 5 Days Qty: 5 2RF Rx Instructions: Once completed, initiate aspirin 81 mg BID x 25 days. Continued venlafaxine 150 mg capsule,extended release 24hr 150 mg PO DAILY lisinopril 10 mg tablet 10 mg PO DAILY Discharge Orders: Discharge Order (Routine); Ordered 04/03/23 Ordered By: Suzy Li Patient Education: Acetaminophen (By mouth), Hydrocodone/Acetaminophen (By mouth), Aspirin (By mouth), Laxative, Stimulant (By mouth), Rivaroxaban (By mouth), Crutch Instructions (DC), ORIF of Hip Fracture (DC) Additional Instructions: I would start your Omeprazole again while you're on the Xarelto and Aspirin. Activity Level: Activity as Tolerated, Weight Bearing as Tolerated and Use Walker Discharge Diet: Regular Follow Up Appointments: Lawrence Brown MD [Staff Physician] - 05/15/23 8:30 am ([facility]) Provider,Not a Local [Primary Care Provider] - Pee Díaz PA-C [Physician Transportation Program Director] - 04/10/23 10:30 am ([facility]) Forms: [email or web address] Info Instructions
--- NOTE | 2023-04-03 13:14 | PC.NURSE ---
Nursing Care Hours: [id number] Pt this shift calm and cooperative with cares, alert and oriented. Pt independent in room with walker. Pt took a walk in the [place] independently. Pain managed. CMS intact. LS clear, denies chest pain. VSS. Eating, drinking, voiding. No BM, senna given. IV removed, discharge instructions provided. Wheeled out to [employer] vehicle in stable condition.
== END 2023-04-03 12:15 | disposition home or self-care (01) | DRG 308 ==
LOC: ED 15:55 → MEDSURG 16:14
PROVIDERS: Family Medicine; Orthopaedic Surgery Sports Medicine; Admitting Provider Family Medicine; Emergency Provider Emergency Medicine; Visit Provider Family Medicine
PROC: 0QS604Z Reposition Right Upper Femur with Internal Fixation Device, Open Approach (ICD-10-PCS; principal; 2023-04-02 07:30)
DX: S72.091A Other fracture of head and neck of right femur, initial encounter for closed fracture (principal); W01.0XXA Fall on same level from slipping, tripping and stumbling without subsequent striking against object, initial encounter; Y93.K1 Activity, walking an animal; F41.9 Anxiety disorder, unspecified; E78.5 Hyperlipidemia, unspecified; K21.9 Gastro-esophageal reflux disease without esophagitis; Z98.84 Bariatric surgery status; G89.18 Other acute postprocedural pain
CPT/HCPCS: 01210; 36415; 64450; 73501; 73502; 76942; 80048; 80076; 85025; 85610; 85730; 93005; 97110; 97116; 97161; 97165; 99284; 99285; A9270; C1713; J0690; J1100; J2250; J2270; J2405; J2704; J2795; J3010; J3490; J7120

== ENCOUNTER 2024-09-01 15:10 | Emergency (ER) | payer SELFPAY ==
[2024-09-01] VITALS (30 sets, daily range): BP systolic 155–193; BP diastolic 77–94; PULSE 56–81; RESP 18–20; TEMP 36.2–37.1; O2SAT 88–100; BMI 30.4
--- NOTE | 2024-09-01 15:18 | ED_ITS ---
HPI - General Adult General Time Seen by Provider: 15:18 Date Seen: 09/01/24 Chief complaint: Flank Pain Stated complaint: flank pain Time Seen by Provider: 09/01/24 15:18 Source: patient, family, RN notes reviewed and old records reviewed Mode of arrival: ambulatory Limitations: no limitations History of Present Illness HPI narrative: 63-year-old female who comes in today with nausea and vomiting as well as flank pain. This started abruptly about an hour prior to coming the emergency department. Left flank pain radiating to the left lower quadrant, also some dysuria. Nausea and dry heaves. No fever chills. No prior symptoms like this. Related Data Home Medications ?Medication ?Instructions ?Recorded ?Confirmed venlafaxine 150 mg 150 mg PO DAILY 04/01/23 09/01/24 capsule,extended release 24 hr Allergies Allergy/AdvReac Type Severity Reaction Status Date / Time oxycodone Allergy Unknown Verified 09/01/24 15:29 [facility] Medical History (Updated 09/01/24 @ 17:36 by Hi Tinsley MD) Anxiety ?F41.9 - Anxiety disorder, unspecified (ICD-10) Hyperlipidemia ?E78.5 - Hyperlipidemia, unspecified (ICD-10) GERD (gastroesophageal reflux disease) ?K21.9 - Gastro-esophageal reflux disease without esophagitis (ICD-10) Surgical History (Updated 04/06/23 @ 09:20 by Chi Isaac) History of open reduction and internal fixation (ORIF) procedure (04/02/23) ?Z98.890 - Other specified postprocedural states (ICD-10) H/O gastric bypass ?Z98.84 - Bariatric surgery status (ICD-10) Hx of laparoscopic gastric banding ?Z98.84 - Bariatric surgery status (ICD-10) History of carpal tunnel release ?Z98.890 - Other specified postprocedural states (ICD-10) H/O: hysterectomy ?Z90.710 - Acquired absence of both cervix and uterus (ICD-10) Hx of cholecystectomy ?Z90.49 - Acquired absence of other specified parts of digestive tract (ICD- 10) Family History Father Colon cancer Social History Narrative: Patient lives with Jas Cloud (would be medical decision maker if needed); they live in an park in [place] in the summer and in [place], [place] during the winter. She has 2 adult children, Jas has 4 adult children. Former smoker, quit remotely. Occasional MJ use, rare ETOH use. DNR/DNI (but agrees to Full Code during surgical procedure). What is your current living situation?: I presently have a place to live Problems where you live: no known problems Problems where you live details: camping at a trailer park in [place] In the past 12 months, utilities in danger of being shut off: no In the past 12 mos, have been you worried that your food would run out before you had money to buy more?: never true In the past 12 mos, the food you bought just didn't last and you didn't have money to buy more?: never true Highest level of school completed/degree received: high school graduate Smoking Status: Never smoker Do you use any of these nicotine containing products: None Second hand tobacco smoke exposure: No How often do you have a drink containing alcohol: 2-4 times a month How often do you have six or more drinks on one occasion: Never AUDIT-C Alcohol total score: 2 Non-prescribed substance use: marijuana (any form) Non-prescribed substance use details: occasionally smokes marijuana for anxiety Caffeine: Yes (1 cup of coffee a day) How often does anyone, including family, friends and others, physically hurt you : never How often does anyone, including family, friends and others, insult or talk down to you: never How often does anyone, including family, friends and others, threaten you with harm: never How often does anyone, including family, friends and others, scream or curse at you: never service: No Exam Narrative: Exam Narrative: General: Well-developed and well-nourished, appears uncomfortable Head: Atraumatic and normocephalic Eyes: Pupils are equal reactive, extraocular motions intact, conjunctiva clear ENT: External nose and ears are normal, posterior pharynx without erythema or exudate Neck: No midline cervical tenderness, full spontaneous range of motion the neck, trachea midline, no adenopathy Heart: Regular rate and rhythm no murmurs or thrills Lungs: Clear to auscultation bilaterally without wheezes or crackles Abdomen: Soft, left CVA tenderness and left-sided abdominal tenderness Musculoskeletal: No tenderness, deformity, or edema Neurologic: Awake, alert, and oriented x3, no gross focal neurologic deficits, cranial nerves intact as tested Psych: Mood and affect are appropriate Skin: No rashes Const: Vital Signs, click to edit/add: Vital Signs - 24 hr 09/01/24 15:26 09/01/24 15:26 09/01/24 15:27 Temperature 97.1 F L Pulse Rate 68 67 Pulse Rate [Pulse Oximeter] 68 Respiratory Rate 20 Blood Pressure 172/82 H 178/83 H Blood Pressure [Le ft Upper Arm] 172/82 H Pulse Oximetry 100 100 100 Oxygen Delivery [facility] 09/01/24 15:28 09/01/24 15:30 09/01/24 15:32 Temperature Pulse Rate 68 71 Pulse Rate [Pulse Oximeter] Respiratory Rate Blood Pressure 176/77 H Blood Pressure [Le ft Upper Arm] Pulse Oximetry 100 100 Oxygen Delivery [facility] 09/01/24 15:46 09/01/24 16:00 09/01/24 16:01 Temperature Pulse Rate 75 69 Pulse Rate [Pulse Oximeter] Respiratory Rate Blood Pressure 174/84 H Blood Pressure [Le ft Upper Arm] Pulse Oximetry 100 100 100 Oxygen Delivery [facility] 09/01/24 16:15 09/01/24 16:17 09/01/24 16:18 Temperature Pulse Rate 68 63 64 Pulse Rate [Pulse Oximeter] Respiratory Rate Blood Pressure 189/90 H Blood Pressure [Le ft Upper Arm] Pulse Oximetry 100 100 100 Oxygen Delivery [facility] 09/01/24 16:32 09/01/24 16:45 09/01/24 17:00 Temperature Pulse Rate 65 69 60 Pulse Rate [Pulse Oximeter] Respiratory Rate Blood Pressure Blood Pressure [Le ft Upper Arm] Pulse Oximetry 99 91 98 Oxygen Delivery [facility] 09/01/24 17:02 09/01/24 17:10 09/01/24 17:15 Temperature 98.7 F Pulse Rate 56 L 59 L 70 Pulse Rate [Pulse Oximeter] Respiratory Rate 18 Blood Pressure 181/91 H 193/91 H Blood Pressure [Le ft Upper Arm] Pulse Oximetry 98 98 88 Oxygen Delivery [facility] 09/01/24 17:24 09/01/24 17:30 09/01/24 17:32 Temperature 97.8 F Pulse Rate 67 67 Pulse Rate [Pulse Oximeter] 63 Respiratory Rate 18 Blood Pressure 176/86 H Blood Pressure [Le ft Upper Arm] 193/91 H Pulse Oximetry 99 93 92 Oxygen Delivery Me thod Room Air 09/01/24 17:45 09/01/24 18:00 09/01/24 18:02 Temperature Pulse Rate 62 66 60 Pulse Rate [Pulse Oximeter] Respiratory Rate Blood Pressure 188/94 H Blood Pressure [Le ft Upper Arm] Pulse Oximetry 93 96 94 Oxygen Delivery Me th[facility] 09/01/24 18:15 09/01/24 18:34 09/01/24 18:35 Temperature Pulse Rate 67 81 61 Pulse Rate [Pulse Oximeter] Respiratory Rate Blood Pressure 187/82 H Blood Pressure [Le ft Upper Arm] Pulse Oximetry 93 97 96 Oxygen Delivery [facility] 09/01/24 18:37 09/01/24 18:45 09/01/24 19:00 Temperature Pulse Rate 62 68 74 Pulse Rate [Pulse Oximeter] Respiratory Rate Blood Pressure 173/88 H Blood Pressure [Le ft Upper Arm] Pulse Oximetry 96 94 95 Oxygen Delivery Me thod 09/01/24 19:02 Temperature Pulse Rate 72 Pulse Rate [Pulse Oximeter] Respiratory Rate Blood Pressure 155/79 H Blood Pressure [Le ft Upper Arm] Pulse Oximetry 95 Oxygen Delivery Me thod Course Course ED Course: Reviewed most recent admission from April 01 2023 when patient was admitted for hip fracture and underwent surgery, at that time also noted history of anxiety, hyperlipidemia, reflux with prior gastric bypass, hysterectomy, cholecystectomy. Patient seen examined, presents today with left flank pain as well as left- sided abdominal pain, nausea, vomiting, and dysuria. On exam here, hypertensive but otherwise finally stable, appears quite uncomfortable. Left-sided abdominal tenderness left CVA tenderness. Suspect ureteral stone, cannot exclude colitis, diverticulitis. Also consider aortic pathology. Labs ordered along with Toradol, Zofran, and CT scan Reevaluation(s) Time of Reevaluation #1: 16:03 Reevaluation #1: Patient recheck, appears little more comfortable but still having a lot of pain. Labs independently interpreted by me with normal CBC, urinalysis with blood and some ketones but no evidence for infection. Suspect kidney stone. Dilaudid and additional Zofran ordered. Time of Reevaluation #2: 16:43 Reevaluation #2: CT scan of the abdomen and pelvis in the middle interpreted by me demonstrates left hydronephrosis and mild hydroureter, question of a 2-3 mm stone at the left UVJ. Time of Reevaluation #3: 17:30 Reevaluation #3: Reviewed radiology interpretation of CT scan which agrees with my initial interpretation. Given size and location of stone as well as duration of patient's symptoms, this should pass on its own. Plan to discharge medication for pain management and outpatient follow-up with urology. Additional Reevaluation(s): 5:52 p.m. patient rechecked and updated with findings and plan. She appears quite comfortable now. Will transition to oral pain medications and continue to observe in the emergency department picture pain is well controlled, anticipate discharge. Patient is agreeable to this plan. Vital Signs Vital signs: Initial Vital Signs Temperature 97.1 F L 09/01/24 15:26 Temperature Source Temporal Artery Scan 09/01/24 15:26 Pulse Rate 68 09/01/24 15:26 Pulse Rhythm Regular 09/01/24 15:26 Pulse Strength 3+ Normal 09/01/24 15:26 Respiratory Rate 20 09/01/24 15:26 Blood Pressure 172/82 H 09/01/24 15:26 Blood Pressure Mean 112 H 09/01/24 15:26 Blood Pressure Position Sitting 09/01/24 15:26 Pulse Oximetry 100 09/01/24 15:26 Vital Signs Temperature 97.1 F L 09/01/24 15:26 Pulse Rate 68 09/01/24 15:26 Respiratory Rate 20 09/01/24 15:26 Blood Pressure 172/82 H 09/01/24 15:26 Pulse Oximetry 100 09/01/24 15:26 Temperature 97.8 F 09/01/24 17:24 Pulse Rate 72 09/01/24 19:02 Respiratory Rate 18 09/01/24 17:24 Blood Pressure 155/79 H 09/01/24 19:02 Pulse Oximetry 95 09/01/24 19:02 Oxygen Delivery Method Room Air 09/01/24 17:24 Medications Administered Medications: Discontinued Medications Generic Name Dose Route Start Last Admin Trade Name Freq PRN Reason Stop Dose Admin Hydrocodone Bitart/Acetaminophen 1 tab 09/01/24 17:43 09/01/24 18:05 Hydrocodone/Acetamin 7.5-325 Tablet PO 09/01/24 17:44 1 tab ONCE ONE Administration Hydromorphone HCl 0.5 mg 09/01/24 16:03 09/01/24 16:09 Hydromorphone 0.5 Mg/0.5 Ml Inj IVP 09/01/24 16:04 0.5 mg ONCE ONE Administration Hydromorphone HCl 0.5 mg 09/01/24 17:01 09/01/24 17:07 Hydromorphone 0.5 Mg/0.5 Ml Inj IVP 09/01/24 17:02 0.5 mg ONCE ONE Administration Ketorolac Tromethamine 15 mg 09/01/24 15:31 09/01/24 15:42 Ketorolac 15 Mg/Ml Inj IVP 09/01/24 15:32 15 mg ONCE ONE Administration Ondansetron HCl 4 mg 09/01/24 15:31 09/01/24 15:40 Ondansetron 2 Mg/Ml Inj IVP 09/01/24 15:32 4 mg ONCE ONE Administration Ondansetron HCl 4 mg 09/01/24 16:03 09/01/24 16:10 Ondansetron 2 Mg/Ml Inj IVP 09/01/24 16:04 4 mg ONCE ONE Administration Medical Decision Making Lab Data Labs: Lab Results 09/01/24 09/01/24 Range/Units 15:20 Unknown WBC 7.51 (4.50-11.00) K/uL RBC 4.66 (4.00-5.20) m/uL Hgb 14.6 (12.0-16.0) gm/dL Hct 40.7 (33.0-51.0) % MCV 87 (80-100) fL MCH 31 (26-34) pg MCHC 36 (32-36) gm/dL RDW Coeff of [place] 12.0 (11.5-15.5) % Plt Count 236 (140-440) K/uL Neut % (Auto) 57.8 (42.0-72.0) % Lymph % (Auto) 34.2 (20-44) % Mower % (Auto) 7.3 (0.0-11.0) % Eos % (Auto) 0.3 (0.0-7.0) % Baso % (Auto) 0.3 (0.0-3.0) % Neut # (Auto) 4.34 (1.7-7.0) K/uL Lymph # (Auto) 2.57 (0.90-2.90) K/uL Mower # (Auto) 0.50 (0.00-0.90) K/UL Eos # (Auto) 0.02 (0.00-0.50) K/uL Baso # (Auto) 0.02 (0.00-0.30) K/uL Abs Immat Gran (auto) 0.01 (0.00-0.30) K/uL Imm/Tot Granulo (auto) 0.1 % Sodium 136 (135-149) mmol/L Potassium 3.7 (3.6-5.1) mmol/L Chloride 104 (96-114) mmol/L Carbon Dioxide 19 L (20-32) mmol/L Anion Gap 13 (7-15) mEq/L BUN 16 (7-30) mg/dL Creatinine 0.9 (0.5-1.5) mg/dL Estimated Creat Clear 58.84 Estimated GFR 72 ml/min Glucose 145 H (60-115) mg/dL Calcium 9.6 (8.4-10.6) mg/dL Urine Color Yellow (Yellow) Urine Appearance Clear (Clear) Urine pH 6.5 (5.0-8.5) Ur Specific [place] 1.025 (1.000-1.030) Urine Protein 2+ A (Negative) Urine Glucose (UA) Negative (Negative) Urine Ketones 3+ A (Negative) Urine Blood 2+ A (Negative) Urine Nitrite Negative (Negative) Urine Bilirubin Negative (Negative) Urine Urobilinogen 0.2 (0.2-1.0) Ur Leukocyte Esterase Negative (Negative) Urine RBC 10-25 A (0-2) Urine WBC 0-2 (0-5) Ur Squamous Epith Cells None (None-Few) Urine Bacteria Few A (None) Discharge Plan Discharge Clinical Impression: Calculus of distal left ureter Patient Disposition: Home, Self-Care Condition: Stable Instructions: Ureteral Stones (ED) Additional Instructions: Take Tylenol 500 mg every 6 hours as needed for pain. Take [place] for pain not controlled with Tylenol. The [place] has 325 mg of Tylenol. Do not take more than for g of Tylenol daily. Take Zofran as needed for nausea vomiting Call urology tomorrow to schedule outpatient follow-up next week. [facility] at [phone] (Salina Navarro) or [phone] (Taylor Saunders). They also see patient in [facility] Activity Level: No Restrictions Discharge Diet: Regular Prescriptions: No Action venlafaxine 150 mg capsule,extended release 24hr 150 mg PO DAILY Follow Up/Referrals: Provider,Not a Local [Primary Care Provider] - Stand Alone Forms: [employer] [place] Info Instructions
--- NOTE | 2024-09-01 15:31 | CRLHL7_ITS ---
For Patients: As a result of the Century Cures Act, medical imaging exams and procedure reports are released immediately into your electronic medical record. You may view this report before your referring provider. If you have questions, please contact your health care provider. INDICATION: Left flank and abdominal pain. Nausea, vomiting. TECHNIQUE: CT abdomen and pelvis without contrast. COMPARISON: None. FINDINGS: Lower chest: Unremarkable. Liver: Normal in size and attenuation. Gallbladder and bile ducts: Status post cholecystectomy. Spleen: Normal in size. Adrenal glands: Normal in size. No nodules. Pancreas: No inflammation. Kidneys: 3 mm calculus at the left ureterovesical junction. Mild to moderate left hydroureteronephrosis. Asymmetric left perinephric stranding. Few punctate nonobstructive left renal calculi. Left renal cyst. No stones or hydronephrosis in the right kidney. GI tract: Postsurgical changes of gastric bypass. Distal colonic diverticulosis without evidence of diverticulitis. No evidence of obstruction. Normal appendix. Lymph nodes: No lymphadenopathy. Vasculature: Mild scattered atherosclerotic calcifications. Abdominal aorta is normal in caliber. Abdominal wall/Omentum/Peritoneum: Unremarkable. No free air or significant free fluid. Pelvis: Status post hysterectomy. Pelvic phleboliths. Bones: Degenerative changes. Partially visualized screw fixation of the right proximal femur. IMPRESSION: 1. 3 mm left ureterovesical junction calculus with mild to moderate upstream hydroureteronephrosis. 2. Asymmetric left perinephric stranding, which may be due to increased hydrostatic pressures versus superimposed infectious process. Recommend correlation with urinalysis. 3. Punctate left nonobstructive nephrolithiasis. Please note that all CT scans at this facility use dose modulation, iterative reconstruction, and/or weight-based dosing when appropriate to reduce radiation dose to as low as reasonably achievable. Dictated by Gera Roland MD @ 09/01/2024 5:28:41 PM (Electronically Signed)
[2024-09-01] MEDS: ONDANSETRON 2 MG/ML inj 4 MG IVP ×2 (15:40→16:10)
[2024-09-01] MEDS: KETOROLAC 15 MG/ML inj IVP (15:42)
[2024-09-01 15:45] LABS: Appearance Urine Clear (Clear); Bilirubin Urine Negative (Negative); Blood Urine 2+ (Negative); Color Urine Yellow (Yellow); Glucose Urine Negative (Negative); Ketones Urine 3+ (Negative); Leukocyte Esterase Urine Negative (Negative); Nitrite Urine Negative (Negative); Protein Urine 2+ (Negative); Specific Gravity Urine 1.025 (1.000-1.030); Urobilinogen Urine 0.2 (0.2-1.0); pH Urine 6.5 (5.0-8.5)
[2024-09-01 15:48] LABS: Basophils Absolute Auto 0.02 K/uL (0.00-0.30); Basophils Percent Auto 0.3 % (0.0-3.0); Eosinophils Absolute Auto 0.02 K/uL (0.00-0.50); Eosinophils Percent Auto 0.3 % (0.0-7.0); Hematocrit 40.7 % (33.0-51.0); Hemoglobin* 14.6 gm/dL (12.0-16.0); Immature Granulocytes Abs Auto 0.01 K/uL (0.00-0.30); Immature Granulocytes Pct Auto 0.1 %; Lymphocytes Absolute Auto 2.57 K/uL (0.90-2.90); Lymphocytes Percent Auto 34.2 % (20-44); Mean Corpuscular HGB Conc 36 gm/dL (32-36); Mean Corpuscular Hemoglobin 31 pg (26-34); Mean Corpuscular Volume 87 fL (80-100); Monocytes Percent Auto 7.3 % (0.0-11.0); Neutrophils Absolute Auto 4.34 K/uL (1.7-7.0); Neutrophils Percent Auto 57.8 % (42.0-72.0); Platelet Count* 236 K/uL (140-440); Red Blood Count 4.66 m/uL (4.00-5.20); White Blood Count* 7.51 K/uL (4.50-11.00)
[2024-09-01 15:51] LABS: Slide Review Reflex No
[2024-09-01 15:57] LABS: Bacteria Urine Few; WBC Urine 0-2 (0-5)
[2024-09-01 16:02] LABS: Chloride* 104 mmol/L (96-114); Potassium* 3.7 mmol/L (3.6-5.1); Sodium* 136 mmol/L (135-149)
[2024-09-01 16:05] LABS: Anion Gap 13 mEq/L (7-15); Blood Urea Nitrogen* 16 mg/dL (7-30); Carbon Dioxide* 19 mmol/L (20-32); Creatinine* 0.9 mg/dL (0.5-1.5); Est. Creatinine Clearance* 58.84; Estimated Glomerular Filt Rate 72 ml/min; Glucose* 145 mg/dL (60-115)
[2024-09-01 16:06] LABS: Calcium* 9.6 mg/dL (8.4-10.6)
[2024-09-01] MEDS: HYDROmorphone 0.5 mg/0.5 ml inj IVP ×2 (16:09→17:07)
[2024-09-01] MEDS: HYDROCODONE/ACETAMIN 7.5-325 TABLET 1 TAB PO (18:05)
== END 2024-09-01 19:29 | disposition home or self-care (01) ==
PROVIDERS: Emergency Provider Family Medicine
DX: N20.1 Calculus of ureter (principal)
CPT/HCPCS: 36415; 74176; 80048; 81001; 85025; 87086; 96374; 96375; 99284; A9270; J1171; J1885; J2405